=== PATIENT | female | born 1985 | race Caucasian/White ===

== ENCOUNTER 2016-07-05 17:05 | Emergency (ER) | payer OTHER ==
[2016-07-05 17:37] VITALS: BP 107/70; PULSE 88; TEMP 98.2; BMI 34.3
[2016-07-05 18:58] LABS: URINE APPEARANCE SLCLOUDY; URINE BILIRUBIN NEGATIVE (NEGATIVE); URINE BLOOD NEGATIVE (NEGATIVE); URINE COLOR LTYELLOW; URINE GLUCOSE (UA) NEGATIVE (NEGATIVE); URINE KETONE TRACE (NEGATIVE); URINE LEUK ESTERASE TRACE (NEGATIVE); URINE NITRITE NEGATIVE (NEGATIVE); URINE PROTEIN NEGATIVE (NEGATIVE); URINE UROBILINOGEN NEGATIVE E.U./dl (0.2-1.0)
[2016-07-05 19:10] LABS: URINE BACTERIA RARE /hpf (NONE SEEN); URINE HYALINE CAST 1 /lpf; URINE MUCUS RARE; URINE RBC 3 /hpf (0-3); URINE WBC 5 /hpf (3-5)
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
[2016-07-05] MEDS ORDERED: IBUPROFEN 400 MG TABLET (FP) PO ONE (19:21)
[2016-07-05] MEDS: IBUPROFEN 400 MG TABLET (FP) PO ONE (19:23)
== END 2016-07-05 19:36 | disposition home or self-care (01) ==
LOC: JER 17:05 → JERFT 17:05
DX: S16.1XXA Strain of muscle, fascia and tendon at neck level, initial encounter (principal); V43.62XA Car passenger injured in collision with other type car in traffic accident, initial encounter; Y93.89 Activity, other specified; Y92.410 Unspecified street and highway as the place of occurrence of the external cause
CPT/HCPCS: 72050-TC; 81003; 81015; 84703; 99281-25

== ENCOUNTER 2017-02-24 20:54 | Emergency (ER) | payer SELFPAY ==
[2017-02-24 21:14] VITALS: BP 155/95; PULSE 83; TEMP 98.3; BMI 36.8
--- NOTE | 2017-02-24 21:38 | PDOC ---
History of Present Illness - General Chief Complaint: Vaginal Bleeding Stated Complaint: 7 WEEKS , BLEEDING Time Seen by Provider: 02/24/17 21:11 History Source: Patient Exam Limitations: No Limitations - History of Present Illness Travel History: No Initial Comments: 02/24/17 21:36 31-year-old female with no medical history, presents to the emergency department complaining of vaginal bleed. Patient states after she voided, she noticed some pinkish stain to her tissue from wiping. Patient denies fever, chills, nausea/vomiting, chest pain, shortness of breath, abdominal pains, flank pains, urinary symptoms: Frequency/urgency/hesitancy, hematuria. LMP 01/01/2017 Past History - Past Medical History Allergies/Adverse Reactions: Allergies Allergy/AdvReac Type Severity Reaction Status Date / Time latex Allergy Intermediate Itching Verified 02/24/17 21:29 Home Medications: Ambulatory Orders Cetirizine HCl [Zyrtec -] 10 mg PO DAILY 02/17/15 Anemia: No Asthma: No Cancer: No Cardiac Disorders: No CVA: No COPD: No CHF: No Dementia: No Diabetes: No GI Disorders: No Disorders: No HTN: No Hypercholesterolemia: No Liver Disease: No Seizures: No Thyroid Disease: No - Surgical History GI Surgery: Yes (GASTRIC SLEEVE) - Reproductive History Is Patient Now?: Yes Therapeutic (s) & number: No - Immunization History Immunization Up to Date: Yes - Suicide/Smoking/Psychosocial Hx Smoking History: Never smoked Information on smoking cessation initiated: No Hx Alcohol Use: No Drug/Substance Use Hx: No Substance Use Type: None Review of Systems - Review of Systems Able to Perform ROS?: Yes Comments:: 02/24/17 21:35 CONSTITUTIONAL: Absent: fever, chills, diaphoresis, generalized weakness, malaise, loss of appetite HEENT: Absent: rhinorrhea, nasal congestion, throat pain, throat swelling, difficulty swallowing, mouth swelling, ear pain, eye pain, visual Changes CARDIOVASCULAR: Absent: chest pain, loss of consciousness, palpitations, irregular heart rate, peripheral edema RESPIRATORY: Absent: cough, shortness of breath, dyspnea with exertion, orthopnea, wheezing, stridor, hemoptysis GASTROINTESTINAL: Absent: abdominal pain, abdominal distension, nausea, vomiting, diarrhea, constipation, melena, hematochezia GENITOURINARY: +vag bleed/stain Absent: dysuria, frequency, urgency, hesitancy, hematuria, flank pain, genital pain MUSCULOSKELETAL: Absent: myalgia, arthralgia, joint swelling SKIN: Absent: rash, itching, pallor Is the patient limited Setswana proficient: No *Physical Exam - Vital Signs Last Vital Signs Temp Pulse Resp BP Pulse Ox 98.3 F 83 20 155/95 02/24/17 21:11 02/24/17 21:11 02/24/17 21:11 02/24/17 21:11 - Physical Exam Comments: 02/24/17 21:36 GENERAL: Well developed, well nourished. Awake and alert. No acute distress. HEENT: Normocephalic, atraumatic. PERRLA, EOMI. No conjunctival pallor. Sclera are non- icteric. Moist mucous membranes. Oropharynx is clear. NECK: Supple. Full ROM. No JVD. Carotid pulses 2+ and symmetric, without bruits. No thyromegaly. No lymphadenopathy. CARDIOVASCULAR: Regular rate and rhythm. No murmurs, rubs, or gallops. Distal pulses are 2+ and symmetric. PULMONARY: No evidence of respiratory distress. Lungs clear to auscultation bilaterally. No wheezing, rales or rhonchi. ABDOMINAL: Soft. Non-tender. Non-distended. No rebound or guarding. No organomegaly. Normoactive bowel sounds. MUSCULOSKELETAL Normal range of motion at all joints. No bony deformities or tenderness. No CVA tenderness. EXTREMITIES: No cyanosis. No clubbing. No edema. No calf tenderness. SKIN: Warm and dry. Normal capillary refill. No rashes. No jaundice. Pelvic: External genitalia normal without lesions. Vaginal vault is clear without blood or discharge. Cervix is long and closed. ED Treatment Course - LABORATORY CBC & Chemistry Diagram: 02/24/17 21:22 02/24/17 21:22 - RADIOLOGY Radiology Studies Ordered: Category Date Time Status TRANSVAGINAL US PREG [US] Stat Ultrasound 02/24/17 21:29 Ordered Radiograph Interpretation: 02/24/17 21:37 Transvaginal US": Early single intrauterine gestation with a crown-rump length that corresponds with an estimated gestation age of 6 weeks and 1 day. No cardiac activity was appreciated. cardiac activity is normally seen at this gestational age. Therefore this is concerning for demise. Recommend clinical correlation, serial beta hCG. *DC/Admit/Observation/Transfer Diagnosis at time of Disposition: demise - Discharge Dispostion Condition at time of disposition: Stable Admit: No - Referrals Referrals: Catrachita Sahu MD [Staff Physician] - - Patient Instructions Additional Instructions: The preliminary report for your transvaginal ultrasound performed in the hospital this evening shows: Early single intrauterine gestation with a crown-rump length that corresponds with an estimated gestational age of 6 weeks and 1 day. There is no cardiac activity. cardiac activity is normally seen at this gestational age. This is concerning for demise. You must return back to the emergency department or be seen by the armature connector for a serial beta hCG in 2 days, a follow-up and a repeat ultrasound. Return back to the emergency department for severe/persistent or worsening symptoms. Todays Betad HCG 63355.5 - Post Discharge Activity
[2017-02-24 21:41] LABS: BASO % 0.2 % (0-2.0); EOS # 0.2 # (0-4.5); EOS % 1.5 % (0-4.5); LYMPH # 4.1 (8-40); MCH 27.2 pg (25.7-33.7); MCHC 32.8 g/dl (32.0-36.0); MEAN CELL VOLUME 83.1 fl (80-96); MONO # 0.7 # (3.8-10.2); NEUT # 7.8 # (42.8-82.8); NEUT % 60.8 % (42.8-82.8); PLATELET COUNT 318 K/MM3 (134-434); RDW 14.2 % (11.6-15.6); WHITE BLOOD COUNT 12.9 K/mm3 (4.0-10.0)
[2017-02-24 21:56] LABS: URINE APPEARANCE CLEAR; URINE BILIRUBIN NEGATIVE (NEGATIVE); URINE BLOOD 2+ (NEGATIVE); URINE COLOR LTYELLOW; URINE GLUCOSE (UA) NEGATIVE (NEGATIVE); URINE KETONE NEGATIVE (NEGATIVE); URINE LEUK ESTERASE NEGATIVE (NEGATIVE); URINE NITRITE NEGATIVE (NEGATIVE); URINE PROTEIN NEGATIVE (NEGATIVE); URINE UROBILINOGEN 4.0 E.U/dl mg/dL (0.2-1.0)
[2017-02-24 22:06] LABS: ALBUMIN 3.7 g/dl (3.4-5.0); ANION GAP 7 (8-16); BILIRUBIN,TOTAL 0.2 mg/dL (0.2-1.0); CALCIUM 8.7 mg/dL (8.5-10.1); CO2 26 mmol/L (21-32); CREATININE 0.8 mg/dL (0.55-1.02); GLUCOSE,RANDOM 85 mg/dL (74-106); SGOT/AST 9 U/L (15-37); SGPT/ALT 16 U/L (12-78); TOT PROT 7.2 g/dl (6.4-8.2)
[2017-02-24 22:07] LABS: ALK PHOS 96 U/L (45-117)
[2017-02-24 22:28] LABS: URINE RBC 2 /hpf (0-3); URINE WBC <1 /hpf (3-5)
[2017-02-25 14:02] LABS: URINE LEUK ESTERASE Negative (NEGATIVE)
== END 2017-02-25 00:58 | disposition home or self-care (01) ==
LOC: JER 20:54
DX: O02.1 Missed abortion (principal); Z3A.01 Less than 8 weeks gestation of pregnancy
CPT/HCPCS: 36415; 76817-TC; 80053; 81003; 81015; 84702; 85025; 86850; 86900; 86901; 99282-25

== ENCOUNTER 2017-02-26 18:56 | Emergency (ER) | payer OTHER ==
[2017-02-26 19:00] VITALS: BP 117/74; PULSE 114; TEMP 97.6; BMI 36.8
--- NOTE | 2017-02-26 19:39 | PDOC ---
History of Present Illness - General [place] [facility] [place]: [place] Time Seen by Provider: 02/26/17 19:20 - History of Present Illness Initial Comments: 02/26/17 19:33 CHIEF COMPLAINT: repeat beta, TVUS s/p vag bleeding HISTORY OF PRESENT ILLNESS: 31-year-old female with no medical history, returns to the emergency department for vag bleeding. Patient was seen in this ED and had an ultrasound with no appreciabe FHT and was advised to return for repeat beta and TVUS. Patient denies fever, chills, nausea/vomiting, chest pain , shortness of breath, abdominal pains, flank pains, urinary frequency/urgency/ hesitancy, hematuria. PAST MEDICAL HISTORY: Denies past medical history FAMILY HISTORY: Denies SOCIAL HISTORY: Denies tobacco, alcohol, illicit drug use. SURGICAL HISTORY: Denies ALLERGIES: No known drug allergies REVIEW OF SYSTEMS General/Constitutional: Denies fever or chills. Denies weakness, weight change. HEENT: Denies change in vision. Denies ear pain or discharge. Denies sore throat. Cardiovascular: Denies chest pain or shortness of breath. Respiratory: Denies cough, wheezing, or hemoptysis. Gastrointestinal: Denies nausea, vomiting, diarrhea or constipation. Denies rectal bleeding. Genitourinary: Denies dysuria, frequency, or change in urination. Musculoskeletal: Denies joint or muscle swelling or pain. Denies neck or back pain. Skin and breasts: Denies rash or easy bruising. Neurologic: Denies headache, vertigo, loss of consciousness, or loss of sensation. PHYSICAL EXAM General Appearance: Well-appearing, appropriately dressed. No apparent distress. HEENT: EOMI, PERRLA. No photophobia, scleral icterus. Respiratory/Chest: Lungs CTAB. Cardiovascular: RRR. S1, S2. Gastrointestinal/Abdominal: Normal bowel sounds. Abdomen soft, non-distended. No tenderness or rebound tenderness. No organomegaly, pulsatile mass, guarding , hernia, hepatomegaly, splenomegaly. Musculoskeletal/Extremities: Normal inspection. FROM of all extremities, normal capillary refill. Pelvis Stable. No CVA tenderness. No tenderness to extremities, pedal edema, swelling, erythema or deformity. Integumentary: Appropriate color, dry, warm. No cyanosis, erythema, jaundice or rash Neurologic: sampler first II-XII intact. Fully oriented, alert. Appropriate mood/affect. Motor strength 5/5. No appreciable EOM palsy, facial droop or sensory deficit. Past History - Past Medical History Allergies/Adverse Reactions: Allergies Allergy/AdvReac Type Severity Reaction Status Date / Time latex Allergy Intermediate Itching Verified 02/26/17 18:58 Home Medications: Ambulatory Orders Metformin HCl 500 mg PO ASDIR 02/26/17 Anemia: No Asthma: No Cancer: No Cardiac Disorders: No CVA: No COPD: No CHF: No Dementia: No Diabetes: No GI Disorders: No Disorders: No HTN: No Hypercholesterolemia: No Liver Disease: No Seizures: No Thyroid Disease: No - Surgical History GI Surgery: Yes (GASTRIC SLEEVE) - Reproductive History Therapeutic (s) & number: No - Immunization History Immunization Up to Date: Yes - Suicide/Smoking/Psychosocial Hx Smoking History: Never smoked Hx Alcohol Use: No Drug/Substance Use Hx: No Substance Use Type: None *Physical Exam - Vital Signs Last Vital Signs Temp Pulse Resp BP Pulse Ox 97.6 F 114 H 18 117/74 100 02/26/17 18:58 02/26/17 18:58 02/26/17 18:58 02/26/17 18:58 02/26/17 18:58 ED Treatment Course - RADIOLOGY Radiology Studies Ordered: Category Date Time Status TRANSVAGINAL US PREG [US] Stat Ultrasound 02/26/17 19:30 Ordered Medical Decision Making - Medical Decision Making 02/26/17 19:39 31-year-old female with no medical history, returns to the emergency department for vag bleeding. -beta hcg -TVUS VS notable for HR 114 on arrival to ED, however during interview patient reports "oh, that's because i walked all the to the hospital from my house, [place] so i just walked here." beta hcg - 00941, only increase of 3k since beta of 02/2402/26/17 22:41 Ultrasound results: IMPRESSION: Given that estimated gestational age based on LMP 01/01/2017 = 8 weeks, zero days which do not correlate with estimated gestational age of 6 weeks, based on present CRL measurement. There is no heart rate. Mildly irregular in interval smaller gestational sac now demonstrated . These findings are most suggestive of demise. *DC/Admit/Observation/Transfer Diagnosis at time of Disposition: Miscarriage - Discharge Dispostion Disposition: HOME Condition at time of disposition: Stable Admit: No - Referrals Referrals: Murphy El MD [Primary Care Provider] - Bucky Mitchell MD [Staff Physician] - - Patient Instructions Printed Discharge Instructions: DI for Miscarriage Additional Instructions: Please follow up with your OBGYN by the by the end of the week for further evaluation and monitoring of your miscarriage. You will experience vaginal bleeding, do not be alarmed if begin to pass clots. If you develop lightheadedness, dizziness, palpitations, shortness of breath, or any new or worsening symptoms, please return to the ER. - Post Discharge Activity
== END 2017-02-26 22:46 | disposition home or self-care (01) ==
LOC: JER 18:56 → JERFT 18:56
DX: O03.9 Complete or unspecified spontaneous abortion without complication (principal)
CPT/HCPCS: 36415; 76817-TC; 84702; 99281-25

== ENCOUNTER 2017-11-21 11:26 | Emergency (ER) | payer OTHER ==
[2017-11-21 11:43] VITALS: BMI 38.2
[2017-11-21] MEDS ORDERED: SODIUM CHLORIDE 0.9% 500 ML INFUS.BAG IV ONE (12:04)
--- NOTE | 2017-11-21 12:04 | PDOC ---
History of Present Illness - History of Present Illness Initial Comments: 11/21/17 13:55 The patient is a 32 year old female who is 31 weeks [id number], with no significant past medical history, who presents to the emergency department today complaining of 1 episode of lightheadedness, dizziness, and vomiting that occured this morning. The patient states that she started to feel dizzy and lightheaded while sitting at her desk this morning at work. Denies LOC. She reports 1 episode of nonbloody, nonbilious vomiting around 10:15am. She notes that she experienced a similar event while having an ultrasound done in a very hot room. The patient notes that she has been eating and staying hydrated today. She states that she is feeling slightly better after resting and drinking some water. Denies vaginal bleeding, unusual discharge. Denies fever, chills. Denies any urinary symptoms Allergies: latex, seasonal allergies Surgical Hx: Gastric sleeve (approximately 5 years ago) OBGYN: Dr. No Stark <Casie Dillon - Last Filed: 11/21/17 14:19> - General History Source: Patient Exam Limitations: No Limitations <Sherry Schwartz - Last Filed: 11/21/17 15:30> - General Chief Complaint: Lightheaded Stated Complaint: LIGHTHEADED/31 WKS Time Seen by Provider: 11/21/17 12:03 Past History <Casie Dillon - Last Filed: 11/21/17 14:19> - Past Medical History Anemia: No Asthma: No Cancer: No Cardiac Disorders: No CVA: No COPD: No CHF: No Dementia: No Diabetes: No GI Disorders: No Disorders: No HTN: No Hypercholesterolemia: No Liver Disease: No Seizures: No Thyroid Disease: No - Surgical History GI Surgery: Yes (GASTRIC SLEEVE) - Reproductive History Therapeutic (s) & number: No - Immunization History Immunization Up to Date: Yes - Suicide/Smoking/Psychosocial Hx Smoking History: Never smoked Hx Alcohol Use: No Drug/Substance Use Hx: No Substance Use Type: None <Sherry Schwartz - Last Filed: 11/21/17 15:30> - Past Medical History Allergies/Adverse Reactions: Allergies Allergy/AdvReac Type Severity Reaction Status Date / Time latex Allergy Intermediate Itching Verified 11/21/17 11:43 Home Medications: Ambulatory Orders metFORMIN HCL [Metformin HCl] 500 mg PO ASDIR 02/26/17 Review of Systems - Review of Systems Able to Perform ROS?: Yes Comments:: 11/21/17 13:55 GENERAL/CONSTITUTIONAL: +lightheaded, +dizzy. No fever or chills. No weakness. no sweats. HEAD, EYES, EARS, NOSE AND THROAT: No change in vision or hearing. No ear pain or discharge. CARDIOVASCULAR: No chest pain or palpitations, syncope or edema. RESPIRATORY: No SOB, cough, wheezing, or hemoptysis. GASTROINTESTINAL +nonbloody, nonbilious vomiting. +nausea. No diarrhea or constipation. No bloody stools. GENITOURINARY: No hematuria, dysuria, frequency, urgency or other changes. MUSCULOSKELETAL: No joint or muscle swelling or pain. No neck or back pain. SKIN: No rash or changes in skin color or lesions. NEUROLOGIC: No headache, vertigo, loss of consciousness, or change in strength/ sensation. No gait instability. HEMATOLOGIC/LYMPHATIC: No anemia, easy bruising/bleeding, or history of blood clots. ALLERGIC/IMMUNOLOGIC: No allergies All other systems reviewed and negative, or as documented in HPI. <Casie Dillon - Last Filed: 11/21/17 14:19> *Physical Exam - Vital Signs Last Vital Signs Temp Pulse Resp BP Pulse Ox 98.8 F 98 H 18 111/70 99 11/21/17 11:41 11/21/17 11:41 11/21/17 11:41 11/21/17 11:41 11/21/17 11:41 - Physical Exam Comments: 11/21/17 13:55 General: Well appearing, awake and alert, NAD. HEENT: NCAT, PERRL, EOMI, clear conjunctiva, anicteric, moist mucus membranes, clear oropharynx, no oral lesions.. Neck: neck supple, FROM Resp: CTAB, normal and even respirations, no respiratory distress CVS: RRR, no murmurs, 2+ peripheral pulses throughout, no peripheral edema Abdomen: +gravid uterus, nontender. no peritoneal signs. Back: nontender, normal inspection and ROM MSK: no edema, CARUSO x4, ROM intact. No clubbing or cyanosis. normal bulk and tone. Neuro: alert, oriented appropriately; no focal neurologic deficits. SILT, 5/5 distal and prox strength in all extrem. speech clear. Skin: warm and well perfused, cap refill <2 sec, normal color <Casie Dillon - Last Filed: 11/21/17 14:19> - Vital Signs Last Vital Signs Temp Pulse Resp BP Pulse Ox 98.8 F 98 H 18 111/70 99 11/21/17 11:41 11/21/17 11:41 11/21/17 11:41 11/21/17 11:41 11/21/17 11:41 <Sherry Schwartz - Last Filed: 11/21/17 15:30> Heart Score/ECG Review - ECG Impressions Comment:: 11/21/17 15:29 EKG normal sinus rhythm, no interval abnormalities, narrow QRS, ST and T wave segments and morphology normal. Nonspecific T wave abnormalities in III, AVF, no prior EKGs for comparison. <Sherry Schwartz - Last Filed: 11/21/17 15:30> ED Treatment Course - LABORATORY CBC & Chemistry Diagram: 11/21/17 12:50 11/21/17 12:50 - ADDITIONAL ORDERS Additional order review: Laboratory Results 11/21/17 11/21/17 13:05 12:50 Sodium 138 Potassium 4.4 Chloride 106 Carbon Dioxide 26 Anion Gap 6 L BUN 4 L Creatinine 0.5 L Creat Clearance w eGFR > 60 Random Glucose 68 L Calcium 8.5 Total Bilirubin 0.3 AST 22 ALT 23 Alkaline Phosphatase 130 H Total Protein 6.7 Albumin 2.7 L Urine Color Ltyellow Urine Appearance Clear Urine pH 7.0 Ur Specific Friendship 1.009 Urine Protein Negative Urine Glucose (UA) Negative Urine Ketones Negative Urine Blood Negative Urine Nitrite Negative Urine Bilirubin Negative Urine Urobilinogen Negative Ur Leukocyte Esterase Negative 11/21/17 12:50 RBC 3.94 MCV 76.9 L MCHC 31.7 L RDW 14.5 MPV 8.5 Neutrophils % 74.7 D Lymphocytes % 17.9 D Monocytes % 6.2 Eosinophils % 1.0 Basophils % 0.2 - Medications Given in the ED: ED Medications Discontinued Medications Generic Name Dose Route Start Last Admin Trade Name Freq PRN Reason Stop Dose Admin Sodium Chloride 1,000 ml 11/21/17 12:04 11/21/17 13:01 Normal Saline - IV 11/21/17 12:05 1,000 ml ONCE ONE Administration <Casie Dillon - Last Filed: 11/21/17 14:19> - LABORATORY CBC & Chemistry Diagram: 11/21/17 12:50 11/21/17 12:50 <Sherry Schwartz - Last Filed: 11/21/17 15:30> Medical Decision Making - Medical Decision Making 11/21/17 15:29 MDM: Mainor 32 YOF at approx 33 weeks gestation presenting with dizziness and headache this morning. Had similar episode previously where she felt faint while in hot room while getting ultrasound. Ate breakfast, since resolved. No AP , vomiting, diarrhea, fever or chills or urinary symptoms. Vitals reviewed, wnl. No fever Labs and lytes, LFTs and Cr wnl. Mild leukocytosis and known h/o anemia, but no bleeding. Glucose borderline at 68, able to tolerate PO with juice and crackers. Well hydrated, able to take PO. UA neg for infection or ketones. No leg swelling or pain, so clinically doubt pe or DVT. EKG normal sinus rhythm, no interval abnormalities, narrow QRS, ST and T wave segments and morphology normal. Nonspecific T wave abnormalities in III, AVF, no prior EKGs for comparison. Otherwise no Cp or sob. Dispo: discharge to L&D for monitoring and BPP. stable for discharge. Pt informed of my clinical impression, treatment recommendations and disposition plan. All questions answered to patient's satisfaction and expressed understanding and comfort with this. Reasons for returning to the ED sooner discussed with the patient otherwise, follow up with primary care physician. At the time of discharge, the patient is alert, clinically improved, tolerating po and verbalizes understanding of instructions. <Sherry Schwartz - Last Filed: 11/21/17 15:30> *DC/Admit/Observation/Transfer - Attestations Scribe Attestion: 11/21/17 13:55 Documentation prepared by CRAIG Verma, acting as emergency medical services coordinator for Sherry Schwartz MD. <Casie Dillon - Last Filed: 11/21/17 14:19> - Discharge Dispostion Decision to Admit order: No Decision to Admit order Date/Time: 11/21/17 15:30 discharge to L&D - Attestations Physician Attestion: 11/21/17 15:30 I, Sherry Schwartz MD, attest that this document has been prepared under my direction and personally reviewed by me in its entirety. I further attest, that it accurately reflects all work, treatment, procedures and medical decision -making performed by me. <Sherry Schwartz - Last Filed: 11/21/17 15:30> Diagnosis at time of Disposition: Dizziness, - Discharge Dispostion Disposition: TRANSFER ACUTE CARE/OTHER HOSP Condition at time of disposition: Improved - Referrals Referrals: Murphy El MD [Primary Care Provider] - - Patient Instructions Printed Discharge Instructions: Diet, DI for Abdominal Pain -- Early , DI for Dizziness-Nonvertigo Additional Instructions: Your laboratory / imaging results were normal, sugar was borderline low urine negative for dehydration or infection you feel better with fluids, continue to stay hydrated. Follow up with your physician and consultants as instructed, take your medications as instructed including your prenatals. Return if worsening symptoms including fevers, headache, vomiting, visual or hearing disturbances, abdominal pain, chest pain, shortness of breath, syncope, dehydration, inability to take things by mouth/vomiting, altered mental status, or worsening concerning symptoms. your medications on discharge include_ side effects may include upset stomach, abdominal pain, vomiting, or diarrhea. do not drink alcohol with your medications. you will be transferred to the labor and delivery unit for monitoring.
[2017-11-21 13:05] LABS: BASO % 0.2 % (0-2.0); HEMATOCRIT 30.3 % (32.4-45.2); HEMOGLOBIN 9.6 GM/dL (10.7-15.3); LYMPH % 17.9 % (8-40); MCH 24.4 pg (25.7-33.7); MCHC 31.7 g/dl (32.0-36.0); MEAN CELL VOLUME 76.9 fl (80-96); MEAN PLT VOLUME 8.5 fl (7.5-11.1); MONO % 6.2 % (3.8-10.2); NEUT % 74.7 % (42.8-82.8); PLATELET COUNT 346 K/MM3 (134-434); RBC 3.94 M/mm3 (3.60-5.2); RDW 14.5 % (11.6-15.6); WHITE BLOOD COUNT 11.3 K/mm3 (4.0-10.0)
[2017-11-21 13:13] LABS: URINE APPEARANCE CLEAR; URINE BILIRUBIN NEGATIVE (<2.0 mg/dL); URINE COLOR LTYELLOW; URINE GLUCOSE (UA) NEGATIVE (NEGATIVE); URINE KETONE NEGATIVE (NEGATIVE); URINE LEUK ESTERASE NEGATIVE (NEGATIVE); URINE NITRITE NEGATIVE (NEGATIVE); URINE PROTEIN NEGATIVE (NEGATIVE); URINE UROBILINOGEN NEGATIVE mg/dL (0.2-1.0)
[2017-11-21 13:35] LABS: ALBUMIN 2.7 g/dl (3.4-5.0); ANION GAP 6 MMOL/L (8-16); BILIRUBIN,TOTAL 0.3 mg/dL (0.2-1); BLOOD UREA NITROGEN 4 mg/dL (7-18); CALCIUM 8.5 mg/dL (8.5-10.1); CHLORIDE 106 mmol/L (98-107); CO2 26 mmol/L (21-32); CREATININE 0.5 mg/dL (0.55-1.3); GLUCOSE,RANDOM 68 mg/dL (74-106); POTASSIUM 4.4 mmol/L (3.5-5.1); SGOT/AST 22 U/L (15-37); SGPT/ALT 23 U/L (13-61); SODIUM 138 mmol/L (136-145); TOT PROT 6.7 g/dl (6.4-8.2)
[2017-11-21 13:36] LABS: ALK PHOS 130 U/L (45-117)
--- NOTE | 2017-11-21 15:25 | EKG ---
Test Reason : Blood Pressure : / mmHG Vent. Rate : 081 BPM Atrial Rate : 081 BPM P-R Int : 138 ms QRS Dur : 090 ms QT Int : 360 ms P-R-T Axes : 019 009 008 degrees QTc Int : 418 ms NORMAL SINUS RHYTHM NORMAL ECG NO PREVIOUS ECGS AVAILABLE Confirmed by JAMILA VINCENT, SERGO ([id number]) on 11/21/2017 3:25:10 PM Referred By: Confirmed By:SERGO MARINO MD
[2017-11-21 16:18] VITALS: BP 103/64; PULSE 94; TEMP 98.8
== END 2017-11-21 17:00 | disposition home or self-care (01) ==
LOC: JER 11:26
PROC: 3E0337Z Introduction of Electrolytic and Water Balance Substance into Peripheral Vein, Percutaneous Approach (ICD-10-PCS; principal; 2017-11-21)
DX: O26.893 Other specified pregnancy related conditions, third trimester (principal); Z3A.31 31 weeks gestation of pregnancy; R42 Dizziness and giddiness
CPT/HCPCS: 36415; 80053; 81003; 83690; 85025; 87086; 93005; 93010; 99281-25

== ENCOUNTER 2018-01-25 08:55 | Inpatient (IN) | payer OTHER ==
[2018-01-25] MEDS ORDERED: ELECTROLYTE-148 SOLN 1,000 ML IV ONE (10:55)
--- NOTE | 2018-01-25 11:23 | HP ---
Past Medical History - Primary Care Physician PCP:: Blanquita Stark - Admission Chief Complaint: Elective Section History of Present Illness: 32 yo EDC 01/18/18 EGA 41 weeks admitted to for postdates and will do elective Section Pt withanemia and + GBS History Source: Patient Limitations to Obtaining History: No Limitations - Past Medical History ...: 3 ...Para: 0 ...Term: 0 ...: 0 ...Spon : 0 ...Induced : 0 ...LMP: 04/13/17 ... Weeks Gestation by Dates: 41.0 ...EDC by Dates: 01/18/18 ...EDC by Sono: 01/20/18 - Past Surgical History Past Surgical History: Yes: None Hx Myomectomy: No Hx Transabdominal Cerclage: No - Smoking History Smoking history: Never smoked Have you smoked in the past 12 months: No - Alcohol/Substance Use Hx Alcohol Use: No History of Substance Use: reports: None - Social History History of Recent Travel: No Home Medications - Allergies Allergies/Adverse Reactions: Allergies Allergy/AdvReac Type Severity Reaction Status Date / Time latex Allergy Intermediate Itching Verified 11/21/17 11:43 - Home Medications Home Medications: Ambulatory Orders Vitamins 1 tab PO DAILY 11/21/17 Review of Systems - Review of Systems Constitutional: reports: No Symptoms Eyes: reports: No Symptoms HENT: reports: No Symptoms Neck: reports: No Symptoms Cardiovascular: reports: No Symptoms Respiratory: reports: No Symptoms Gastrointestinal: reports: No Symptoms Genitourinary: reports: No Symptoms Breasts: reports: No Symptoms Reported Musculoskeletal: reports: No Symptoms Integumentary: reports: No Symptoms Neurological: reports: No Symptoms Endocrine: reports: No Symptoms Hematology/Lymphatic: reports: No Symptoms Psychiatric: reports: No Symptoms Physical Exam - Maternity Vital Signs: Vital Signs Temperature 98.2 F 01/25/18 09:00 Pulse Rate 93 H 01/25/18 09:00 Respiratory Rate 18 01/25/18 09:00 Blood Pressure 121/75 01/25/18 09:00 O2 Sat by Pulse Oximetry (%) Constitutional: Yes: Well Nourished, No Distress Neck: Yes: WNL Cardiovascular: Yes: WNL, Regular Rate and Rhythm Lungs: Clear to auscultation Breast(s): Yes: WNL - Abdominal Exam/OB Fundal Height: 41 Number of Fetuses: Single Presentation: Vertex Contractions: No Category: I Accelerations: Non-Uniform Decelerations: None - Vaginal Exam/OB Dilatation (cm): 1 cm Effacement (%): 50 Amniotic Membrane Status: Intact Presentation: Vertex/Position Station: -1 - Physical Exam Musculoskeletal: Yes: WNL Extremities: Yes: WNL Edema: No Hemorrhage Risk Assessment - Risk Factors Risk Score: 1 Risk Level: Medium Risk Problem List - Problems (1) Delivery by elective section Code(s): O82 - ENCOUNTER FOR DELIVERY WITHOUT INDICATION (2) Post term Code(s): O48.0 - POST-TERM Qualifiers: Assessment/Plan Elective Section 41 weeks Unfavorable cervix Cat1 AF! 6 Plan Low Transverse Section
[2018-01-25] MEDS ORDERED: METHYLERGONOVINE MALEATE 0.2 MG/1 ML AMP IM PRN (11:28)
[2018-01-25] MEDS ORDERED: ELECTROLYTE-148 SOLN 1,000 ML IV SCH (11:30)
[2018-01-25] MEDS ORDERED: OXYTOCIN 20 UNITS in 0.9% NS 20 UNIT/1,000 ML INFUS.BAG IV SCH (11:30)
--- NOTE | 2018-01-25 11:31 | OP ---
Operative Note - Note: Operative Date: 01/25/18 Pre-Operative Diagnosis: Postdates. ELective Section. 41 weeks Operation: Low transverse Ceasrean Section Findings: Live male infant Post-Operative Diagnosis: Same as Pre-op Surgeon: Blanquita Stark Chemical Dependency Nurse: Rony Taylor Anesthesia: Spinal Estimated Blood Loss (mls): 700 Operative Report Dictated: Yes
[2018-01-25 12:16] VITALS: BMI 38.2
[2018-01-25] MEDS ORDERED: ONDANSETRON 4 MG/2 ML VIAL IVPUSH PRN (12:20)
[2018-01-25] MEDS ORDERED: OXYTOCIN 20 UNITS in 0.9% NS 40 UNIT/2,000 ML INFUS.BAG IV ONE (12:49)
[2018-01-25] MEDS ORDERED: TUBERCULIN PPD 5 TU/0.1ML SYRINGE (IN PATIENT USE ONLY) ID ONE (13:00)
[2018-01-25] MEDS ORDERED: CITRIC ACID/SODIUM CITRATE 30 ML UNIT-DOSE CUP PO ONE (13:00)
[2018-01-25] MEDS ORDERED: morphine SULFATE/Preservative Free 0.5 MG/ML (1cc Syringe) ONE (13:36)
[2018-01-25] MEDS ORDERED: KETOROLAC TROMETHAMINE 30 MG/1 ML VIAL ONE (13:37)
[2018-01-25] MEDS ORDERED: ceFAZolin SODIUM 1 GM VIAL ONE (13:54)
[2018-01-25] MEDS ORDERED: ePHEDrine SULFATE 50 MG/1 ML AMPULE ONE (13:55)
[2018-01-25] MEDS ORDERED: PHENYLEPHRINE HCL 10 MG/1 ML SINGLE DOSE VIAL ONE (14:09)
[2018-01-25 15:09] LABS: ARTERIAL BLD GAS O2 SATURATION 9.9 % (90-98.9); ARTERIAL BLOOD GAS BASE EXCESS -11.8 meq/l (-2-2); ARTERIAL BLOOD GAS PCO2 75.4 mmHg (35-45); ARTERIAL BLOOD GAS PO2 14.8 mmHg (80-100)
[2018-01-25 15:14] LABS: ARTERIAL BLOOD GAS pH 7.07 (7.35-7.45)
[2018-01-25 15:17] LABS: VENOUS PC02 59.3 mmHg (38-52); VENOUS PH 7.17 (7.32-7.42); VENOUS PO2 18.2 mmHg (28-48)
--- NOTE | 2018-01-25 16:29 | OP ---
DATE OF OPERATION: DATE OF DICTATION: 01/25/2018 PREOPERATIVE DIAGNOSES: Intrauterine , at 41 weeks. Failed induction. OPERATION: Primary low transverse section. POSTOPERATIVE DIAGNOSES: Live male . Nuchal cord x1. Occiput posterior position. SURGEON: Blanquita Stark MD MICROBIOLOGY COORDINATOR: SYL Park; MD unavailable. ANESTHESIA: Spinal. FINDINGS: Live male delivered in OP position with meconium and a nuchal cord x1. PROCEDURE: Patient was taken to the operating room and placed in supine position, prepped and draped in the usual sterile fashion. A timeout was performed in accordance with hospital regulation. Pfannenstiel skin incision was made with the scalpel. Cautery was then used to go through the layers of abdominal wall to the level of the fascia. The fascia was cut in the midline and cautery was then used to open the fascia in smiling fashion. Kochers were then used to bluntly and sharply dissect the rectus muscles off the fascia. Muscles split in the midline. Peritoneal cavity was then entered and carried up and down where bladder retractor was then placed. The scalpel was then used to make a low transverse uterine incision. The incision was carried upward using bandage scissors. A live male was delivered in OP position. [id number]-zd-horar suction performed. Shoulders were delivered without difficulty. Cord was clamped and cut. Cord blood obtained. Cord pH obtained. Cord blood sampling obtained. Tissue sampling obtained. Infant handed to chip mucker. Placenta was manually extracted from the uterus. Uterus exteriorized and cleaned with clean lap pads. Uterine incision then closed using 0-Biosyn suture, first layer in continuous and locking, second layer imbricating the first layer. Hemostasis was achieved using [id number] sutures. Uterus interiorized. Abdominal cavity cleaned with clean lap pads. Peritoneum closed using 0-Biosyn suture. Muscles approximated in the midline using 0-Biosyn suture. Fascia was then closed using 0-Vicryl suture in two parts. Subcutaneous was closed using 0 Biosyn interrupted sutures. The skin was then closed using 3-0 Vicryl in subcuticular fashion. Steri-Strips placed. Patient had tolerated the procedure well. ESTIMATED BLOOD LOSS: 600 mL. Abdominal sweep done. Pad count noted to be normal. Patient was taken to the recovery room in stable condition. BLANQUITA STARK M.D. [id number]
[2018-01-26 07:38] LABS: BASO % 0.1 % (0-2.0); EOS % 0.3 % (0-4.5); HEMATOCRIT 28.8 % (32.4-45.2); LYMPH % 12.7 % (8-40); MCH 23.7 pg (25.7-33.7); MCHC 31.3 g/dl (32.0-36.0); MEAN CELL VOLUME 75.5 fl (80-96); MEAN PLT VOLUME 8.6 fl (7.5-11.1); MONO % 4.9 % (3.8-10.2); PLATELET COUNT 258 K/MM3 (134-434); RBC 3.82 M/mm3 (3.60-5.2); RDW 18.9 % (11.6-15.6); WHITE BLOOD COUNT 11.4 K/mm3 (4.0-10.0)
--- NOTE | 2018-01-26 07:48 | PN ---
Post Progress Note - Subjective Subjective: 32 yo Para 1 status post primary , seen and evaluated. No complaints. Post Day: 1 Type of Delivery: Primary C/S Vital Signs: Vital Signs Temperature 98.4 F 01/26/18 06:00 Pulse Rate 88 01/26/18 06:00 Respiratory Rate 18 01/26/18 06:00 Blood Pressure 112/63 01/26/18 06:00 O2 Sat by Pulse Oximetry (%) 99 01/25/18 21:00 Breast Exam: Yes: Soft Uterus: Yes: Fundus Firm Incision: Yes: Dressing dry and intact Abdomen/GI: Yes: Abdomen soft Lochia: Yes: Rubra Lochia, amount: Small Extremities: Yes: Calves non-tender Assessment/Plan Status post primary Ambulation Analgesia as needed Continue routine post op care
[2018-01-26] MEDS: SIMETHICONE 80 MG TAB.CHEW (FP) PO PRN ×2 (10:35→21:54)
[2018-01-26] MEDS: IBUPROFEN 600 MG TABLET (FP) PO PRN ×2 (10:36→21:54)
[2018-01-26] MEDS: oxyCODONE HCL 5 MG TABLET PO PRN ×2 (10:36→21:54)
[2018-01-26] MEDS ORDERED: BISACODYL 10 MG SUPP.RECT RC PRN (11:28)
[2018-01-26] MEDS ORDERED: oxyCODONE HCL 5 MG TABLET PO PRN (11:28)
--- NOTE | 2018-01-26 11:44 | PROC ---
Procedure Note Procedure: Anesthesia post op note, POD#1 S/P Primary under spinalanesthesia. VSS. No apparent post anesthesia complications signed off.
[2018-01-26] MEDS ORDERED: DIPHTH,PERTUSS(ACELL),TET 0.5 ML DISP.SYRIN IM ONE (14:00)
[2018-01-27] MEDS: SIMETHICONE 80 MG TAB.CHEW (FP) PO PRN ×2 (12:05→22:25)
[2018-01-27] MEDS: IBUPROFEN 600 MG TABLET (FP) PO PRN ×2 (12:06→22:25)
[2018-01-27] MEDS: oxyCODONE HCL 5 MG TABLET PO PRN ×2 (12:07→22:25)
--- NOTE | 2018-01-27 14:13 | PN ---
Post Progress Note - Subjective Subjective: 32 yo Para 1 status post primary , seen and evaluated. She's out of bed to chair; c/o mild incision pain. Post Day: 2 Type of Delivery: Primary C/S Vital Signs: Vital Signs Temperature 98.5 F 01/27/18 09:47 Pulse Rate 79 01/27/18 09:47 Respiratory Rate 20 01/27/18 09:47 Blood Pressure 115/69 01/27/18 09:47 O2 Sat by Pulse Oximetry (%) 99 01/25/18 21:00 Breast Exam: Yes: Soft Uterus: Yes: Fundus Firm Incision: Yes: Other (Steri strips in place, no bleeding) Abdomen/GI: Yes: Abdomen soft, Tolerating PO Lochia: Yes: Rubra Lochia, amount: Small Extremities: Yes: Calves non-tender Activity: Ambulating - Labs Labs: CBC WBC 11.4 K/mm3 (4.0-10.0) H 01/26/18 07:00 RBC 3.82 M/mm3 (3.60-5.2) 01/26/18 07:00 Hgb 9.0 GM/dL (10.7-15.3) L 01/26/18 07:00 Hct 28.8 % (32.4-45.2) L 01/26/18 07:00 MCV 75.5 fl (80-96) L 01/26/18 07:00 MCH 23.7 pg (25.7-33.7) L 01/26/18 07:00 MCHC 31.3 g/dl (32.0-36.0) L 01/26/18 07:00 RDW 18.9 % (11.6-15.6) H 01/26/18 07:00 Plt Count 258 K/MM3 (134-434) D 01/26/18 07:00 MPV 8.6 fl (7.5-11.1) 01/26/18 07:00 Absolute Neuts (auto) 9.3 K/mm3 (1.5-8.0) H 01/26/18 07:00 Neutrophils % 82.0 % (42.8-82.8) D 01/26/18 07:00 Lymphocytes % 12.7 % (8-40) D 01/26/18 07:00 Monocytes % 4.9 % (3.8-10.2) 01/26/18 07:00 Eosinophils % 0.3 % (0-4.5) 01/26/18 07:00 Basophils % 0.1 % (0-2.0) 01/26/18 07:00 Nucleated RBC % 0 % (0-0) 01/26/18 07:00 Assessment/Plan Status post primary Ambulation Analgesia as needed Continue routine post op care
--- NOTE | 2018-01-28 07:11 | PN ---
Post Progress Note - Subjective Subjective: Patient seen and evaluated, doing well. Post Day: 3 Type of Delivery: Primary C/S Vital Signs: Vital Signs Temperature 98.6 F 01/27/18 20:48 Pulse Rate 95 H 01/27/18 20:48 Respiratory Rate 20 01/27/18 20:48 Blood Pressure 127/90 01/27/18 20:48 O2 Sat by Pulse Oximetry (%) 99 01/25/18 21:00 Breast Exam: Yes: Soft Uterus: Yes: Fundus Firm Incision: Yes: Other (Steri strips in place) Abdomen/GI: Yes: Abdomen soft, Tolerating PO Lochia: Yes: Rubra Lochia, amount: Small Extremities: Yes: Calves non-tender Activity: Ambulating - Labs Labs: CBC WBC 11.4 K/mm3 (4.0-10.0) H 01/26/18 07:00 RBC 3.82 M/mm3 (3.60-5.2) 01/26/18 07:00 Hgb 9.0 GM/dL (10.7-15.3) L 01/26/18 07:00 Hct 28.8 % (32.4-45.2) L 01/26/18 07:00 MCV 75.5 fl (80-96) L 01/26/18 07:00 MCH 23.7 pg (25.7-33.7) L 01/26/18 07:00 MCHC 31.3 g/dl (32.0-36.0) L 01/26/18 07:00 RDW 18.9 % (11.6-15.6) H 01/26/18 07:00 Plt Count 258 K/MM3 (134-434) D 01/26/18 07:00 MPV 8.6 fl (7.5-11.1) 01/26/18 07:00 Absolute Neuts (auto) 9.3 K/mm3 (1.5-8.0) H 01/26/18 07:00 Neutrophils % 82.0 % (42.8-82.8) D 01/26/18 07:00 Lymphocytes % 12.7 % (8-40) D 01/26/18 07:00 Monocytes % 4.9 % (3.8-10.2) 01/26/18 07:00 Eosinophils % 0.3 % (0-4.5) 01/26/18 07:00 Basophils % 0.1 % (0-2.0) 01/26/18 07:00 Nucleated RBC % 0 % (0-0) 01/26/18 07:00 Assessment/Plan Status post primary Ambulation Analgesia as needed Continue routine post op care
[2018-01-28 07:23] LABS: BASO % 0.3 % (0-2.0); EOS % 1.9 % (0-4.5); HEMATOCRIT 25.6 % (32.4-45.2); HEMOGLOBIN 8.7 GM/dL (10.7-15.3); LYMPH % 23.9 % (8-40); MCH 25.2 pg (25.7-33.7); MCHC 33.9 g/dl (32.0-36.0); MEAN CELL VOLUME 74.2 fl (80-96); MEAN PLT VOLUME 8.7 fl (7.5-11.1); MONO % 6.8 % (3.8-10.2); NEUT % 67.1 % (42.8-82.8); PLATELET COUNT 308 K/MM3 (134-434); RBC 3.44 M/mm3 (3.60-5.2); RDW 18.9 % (11.6-15.6)
[2018-01-28] MEDS: IBUPROFEN 600 MG TABLET (FP) PO PRN ×2 (15:27→23:21)
[2018-01-28] MEDS: ACETAMINOPHEN 325 MG TABLET (FP) PO PRN ×2 (15:28→23:19)
[2018-01-29] MEDS: ACETAMINOPHEN 325 MG TABLET (FP) PO PRN (09:21)
[2018-01-29] MEDS: IBUPROFEN 600 MG TABLET (FP) PO PRN (09:22)
[2018-01-29 11:00] VITALS: BP 130/78; PULSE 67; TEMP 98.3
--- NOTE | 2018-01-30 06:31 | DS ---
Physical Exam-CERTIFIED MEETING PROFESSIONAL Vital Signs: Vital Signs Temperature 98.3 F 01/29/18 08:00 Pulse Rate 67 01/29/18 08:00 Respiratory Rate 18 01/29/18 08:00 Blood Pressure 130/78 01/29/18 08:00 O2 Sat by Pulse Oximetry (%) 99 01/25/18 21:00 Constitutional: Yes: Well Nourished, No Distress Cardiovascular: Yes: WNL, Regular Rate and Rhythm Respiratory: Yes: WNL, Regular, CTA Bilaterally Gastrointestinal: Yes: WNL, Normal Bowel Sounds, Soft ....Post : Yes: Uterus firm, Uterus non-tender Musculoskeletal: Yes: WNL Extremities: Yes: WNL Edema: No Wound/Incision: Yes: Clean/Dry, Well Approximated Labs: CBC, BMP 01/28/18 06:00 Delivery - Delivery Section: Low Flap Transverse Type of Anesthesia: Spinal Episiotomy/Laceration: None EBL (cc): 500 Delivery, Single - Stages of Labor Date of Delivery: 01/25/18 Time of Delivery: 14:13 Time Placenta Delivered: 14:14 Placenta: Yes: Manual Removal - Condition of Infant Project Manager Industrial/Zoning Engineer Present: Yes Name: Ann Marie Mckeon Gender: Male Weight: 8 lb 1 oz Position: Left, OT Total Hours ROM (Hrs/Mins): 0/2 - 1 Minute Total Score: 9 5 Minutes Total Score: 9 - Feeding Plan Initial Plan: Exclusive throughout hospitalization Discharge Summary Reason For Visit: Procedures: Principal: Low transverse Section Hospital Course: Unremarkable Condition: Good - Instructions Diet, Activity, Other Instructions: Physical activity Resume your normal everyday activity as tolerated no heavy lifting or exercise until seen by your surgeon. You may walk unlimited alvaro of and climb stairs. You may resume driving the car when you feel safe and comfortable behind the wheel. No sexual activity as instructed. Wound care If you have a bandage, leave it on, and keep dry for 48-72 hours. After that time discard the outer bandage. If they are tapes on the skin under the out of bandage leave them in place. They will peel off in the next 7 to 10 days. Do Not Peel them off. You may shower the day after surgery. If there are tapes present on the skin, you may shower over them. Diet There are no dietary restrictions. Eat healthy, high-fiber foods. Drink 6 to 8 glasses of liquid each day. This will assist in keeping your bowels are regular. Pain management You may take Tylenol or acetaminophen or Ibuprofen (for example, Motrin, Advil etc.) from my pain prescription medication is ordered should be taken as prescribed for moderate to severe pain. Call MD for any of the following: Severe pain not relieved by medication Fever of 101 or higher Excessive bleeding or drainage on dressing Inability to urinate Disposition: HOME - Home Medications Comprehensive Discharge Medication List: Ambulatory Orders Vitamins 1 tab PO DAILY 11/21/17
--- NOTE | 2018-02-04 17:36 | PATH ---
Surgical Pathology Report Patient Name: KIRSTEN CURTIS [facility]. Rec. #: [id number] /Age/Gender: 1985 (Age: 32) / F Account: [id number] Location: [facility] OBS/RADIATION ENGINEER Taken: 01/25/2018 Received: 01/28/2018 Reported: 02/04/2018 Physicians: Blanquita Stark M.D. Specimen(s) Received PLACENTA Clinical History , 41 weeks, post dates, positive GBS, elective induction Final Diagnosis PLACENTA, SECTION: 521 G THIRD TRIMESTER PLACENTA WITH TRIVASCULAR UMBILICAL CORD AND UNREMARKABLE PLACENTAL MEMBRANES. Electronically Signed Radha Villagomez M.D. Gross Description The specimen is received fresh labeled placenta and is a 521 gram, 20.0 x 16.0 x 2.3 cm. placenta with attached membranes and umbilical cord. The attached membranes are wadsworth, translucent with focal opacities and insert marginally. The umbilical cord measures 12 cm. in length and averages 1.2 cm. in diameter. The cord inserts eccentrically, 6.5 cm. to the nearest margin. No true knots or strictures are identified. Cut surface of the umbilical cord reveals 3 vessels. The surface is hammonds-blue with minimal fibrin deposition and appropriate caliber vessels. The maternal surface is red-brown with focal defects. Sectioning reveals red-brown, spongy parenchyma. No lesions are identified. Wine Manager sections are submitted in three cassettes as follows: 1- membrane rolls and umbilical cord; 2-3- full thickness sections of placenta. 02/01/2018 [facility]02/01/2018
== END 2018-01-29 12:20 | disposition home or self-care (01) | DRG 788 ==
LOC: JDEL 08:55 → JLDR 10:55 → J3W 16:30
PROVIDERS: ADMIT Obstetrics & Gynecology; ATTEND Obstetrics & Gynecology
PROC: 10D00Z1 Extraction of Products of Conception, Low, Open Approach (ICD-10-PCS; principal; 2018-01-25)
DX: O48.0 Post-term pregnancy (principal); O77.0 Labor and delivery complicated by meconium in amniotic fluid; O62.0 Primary inadequate contractions; O99.824 Streptococcus B carrier state complicating childbirth; Z3A.41 41 weeks gestation of pregnancy; Z37.0 Single live birth
CPT/HCPCS: 36415; 36600; 82803; 85025; 86850; 86900; 86901; 88307-TC; 90715

== ENCOUNTER 2018-12-31 20:29 | Emergency (ER) | payer OTHER ==
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
[2018-12-31 20:43] VITALS: BP 120/79; PULSE 84; TEMP 98.2; BMI 36.8
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
[2018-12-31 21:55] LABS: HYALINE CASTS 1 /lpf (0-8); PH,URINE 6.5 (5.0-8.0); URINE APPEARANCE CLEAR; URINE BACTERIA 86.2 /hpf (NEGATIVE); URINE BILIRUBIN NEGATIVE (NEGATIVE); URINE COLOR YELLOW; URINE GLUCOSE (UA) NEGATIVE (NEGATIVE); URINE KETONE NEGATIVE (NEGATIVE); URINE LEUK ESTERASE TRACE (NEGATIVE); URINE NITRITE NEGATIVE (NEGATIVE); URINE PROTEIN NEGATIVE (NEGATIVE); URINE RBC 1 /hpf (0-4); URINE UROBILINOGEN 0.2 mg/dL (0.2-1.0); URINE WBC 2 /hpf (0-5)
== END 2018-12-31 22:36 | disposition home or self-care (01) ==
LOC: JERFT 20:29
DX: O99.89 Other specified diseases and conditions complicating pregnancy, childbirth and the puerperium (principal); S39.012A Strain of muscle, fascia and tendon of lower back, initial encounter; R10.32 Left lower quadrant pain; V43.52XA Car driver injured in collision with other type car in traffic accident, initial encounter; Y92.414 Local residential or business street as the place of occurrence of the external cause; Y93.89 Activity, other specified; Y99.8 Other external cause status; Z3A.11 11 weeks gestation of pregnancy
CPT/HCPCS: 76801-TC; 81003; 99281-25

== ENCOUNTER 2019-01-29 18:42 | Emergency (ER) | payer OTHER ==
--- NOTE | 2019-01-29 18:49 | PDOC ---
Rapid Medical Evaluation Chief Complaint: Vaginal Bleeding Time Seen by Provider: 01/29/19 18:45 Medical Evaluation: Allergies Allergy/AdvReac Type Severity Reaction Status Date / Time banana Allergy Severe Rash Verified 01/25/18 11:34 latex Allergy Severe Rash Verified 01/25/18 11:36 01/29/19 18:45 Pt is a 33 y/o F , presents to the ER today for vaginal bleeding. Pt states she is 15 weeks . She states she saw blood when she wiped today. Exam: NAD, AAOx3. Abdomen soft, nontender Orders: labs, urine, US Pt to proceed to the Er for further evaluation Discharge Disposition - Diagnosis Vaginal bleeding - Referrals - Patient Instructions - Post Discharge Activity
[2019-01-29 18:51] VITALS: BP 106/78; PULSE 78; TEMP 98; BMI 37.4
[2019-01-29] MEDS ORDERED: SODIUM CHLORIDE 0.9% 500 ML INFUS.BAG IV ONE (20:14)
[2019-01-29 20:40] LABS: BASO % 0.6 % (0-2.0); EOS % 0.7 % (0-4.5); HEMATOCRIT 35.8 % (32.4-45.2); HEMOGLOBIN 11.6 GM/dL (10.7-15.3); LYMPH % 28.2 % (8-40); MCH 27.2 pg (25.7-33.7); MCHC 32.5 g/dl (32.0-36.0); MEAN CELL VOLUME 83.7 fl (80-96); MEAN PLT VOLUME 7.9 fl (7.5-11.1); MONO % 5.4 % (3.8-10.2); NEUT % 65.1 % (42.8-82.8); PLATELET COUNT 357 K/MM3 (134-434); RBC 4.28 M/mm3 (3.60-5.2); WHITE BLOOD COUNT 11.7 K/mm3 (4.0-10.0)
[2019-01-29 20:52] LABS: EPI CELLS 6.8 /HPF (0-5/HPF); HYALINE CASTS 10 /lpf (0-8); PH,URINE 7.5 (5.0-8.0); URINE APPEARANCE CLOUDY; URINE BACTERIA 339.3 /hpf (NEGATIVE); URINE BILIRUBIN NEGATIVE (NEGATIVE); URINE COLOR YELLOW; URINE GLUCOSE (UA) NEGATIVE (NEGATIVE); URINE KETONE NEGATIVE (NEGATIVE); URINE LEUK ESTERASE TRACE (NEGATIVE); URINE NITRITE NEGATIVE (NEGATIVE); URINE PROTEIN NEGATIVE (NEGATIVE); URINE RBC 3 /hpf (0-4); URINE WBC 6 /hpf (0-5)
[2019-01-29 21:06] LABS: ALBUMIN 3.2 g/dl (3.4-5.0); BILIRUBIN,TOTAL 0.3 mg/dL (0.2-1); BLOOD UREA NITROGEN 6.1 mg/dL (7-18); CREATININE 0.5 mg/dL (0.55-1.3); POTASSIUM 4.4 mmol/L (3.5-5.1); TOT PROT 6.9 g/dl (6.4-8.2)
[2019-01-29] MEDS ORDERED: NITROFURANTOIN MACROCRYSTAL 50 MG CAPSULE (FP) PO SCH (22:00)
[2019-01-29] MEDS ORDERED: NITROFURANTOIN MACROCRYSTAL 50 MG CAPSULE (FP) ONE (22:24)
[2019-01-29 22:46] LABS: YEAST NONE SEEN (NEGATIVE)
--- NOTE | 2019-01-29 22:49 | PDOC ---
Documentation entered by Derik Brown SCRIBE, acting as scribe for Dalia Aparicio MD. Dalia Aparicio MD: This documentation has been prepared by the Kevin lopez Daniel, SCRIBE, under my direction and personally reviewed by me in its entirety. I confirm that the documentation accurately reflects all work, treatment, procedures, and medical decision making performed by me. History of Present Illness - General Chief Complaint: Vaginal Bleeding Stated Complaint: 15 WKS /BLEEDING Time Seen by Provider: 01/29/19 18:45 History Source: Patient Exam Limitations: No Limitations - History of Present Illness Initial Comments: 01/29/19 20:44 The patient is a 33 year old 15 week female with a past medical history of eczema here today for evaluation of vaginal bleeding. The patient reports that at approximately 6 PM today she went to the bathroom and noticed some brown blood while wiping after urinating. She also notes that there was some brown blood in the bowl. She states that she called her OB who told her to come to the ER for evaluation. Patient notes some light spotting on her underwear earlier today and more brown blood after going to the bathroom while in the ER. She notes some dull abdominal cramping around her scar. She denies any trauma, heavy lifting, or vaginal discharge. Patient denies headache, lightheadedness. Denies fever, chills. Denies chest pain, shortness of breath. Denies nausea, vomiting, diarrhea, abdominal pain. Denies urinary symptoms. Allergies: banana, latex OBGYN: Kathleen Stark Past History - Past Medical History Allergies/Adverse Reactions: Allergies Allergy/AdvReac Type Severity Reaction Status Date / Time banana Allergy Severe Rash Verified 01/29/19 18:47 latex Allergy Severe Rash Verified 01/29/19 18:47 Home Medications: Ambulatory Orders Vitamins 1 tab PO DAILY 11/21/17 Nitrofurantoin Monohyd/M-Cryst [Macrobid -] 100 mg PO BID #14 capsule 01/29/19 Anemia: No Asthma: No Cancer: No Cardiac Disorders: No CVA: No COPD: No CHF: No Dementia: No Diabetes: No GI Disorders: No Disorders: No HTN: No Hypercholesterolemia: No Liver Disease: No Seizures: No Thyroid Disease: No - Surgical History GI Surgery: Yes (GASTRIC SLEEVE) - Reproductive History Therapeutic (s) & number: No - Immunization History Immunization Up to Date: Yes - Psycho Social/Smoking Cessation Hx Smoking History: Never smoked Have you smoked in the past 12 months: No Information on smoking cessation initiated: No Hx Alcohol Use: No Drug/Substance Use Hx: No Substance Use Type: None Hx Substance Use Treatment: No Review of Systems - Review of Systems Able to Perform ROS?: Yes Comments:: 01/29/19 20:45 GENERAL/CONSTITUTIONAL: No fever or chills. No weakness. HEAD, EYES, EARS, NOSE AND THROAT: No change in vision. No ear pain or discharge. No sore throat. CARDIOVASCULAR: No chest pain or shortness of breath. RESPIRATORY: No cough, wheezing, or hemoptysis. GASTROINTESTINAL: +abdominal cramping. No nausea, vomiting, diarrhea or constipation. GENITOURINARY: +vaginal bleeding. No dysuria, frequency, or change in urination. MUSCULOSKELETAL: No joint or muscle swelling or pain. No neck or back pain. SKIN: No rash NEUROLOGIC: No headache, vertigo, loss of consciousness, or change in strength/ sensation. ENDOCRINE: No increased thirst. No abnormal weight change. HEMATOLOGIC/LYMPHATIC: No anemia, easy bleeding, or history of blood clots. ALLERGIC/IMMUNOLOGIC: No hives or skin allergy. *Physical Exam - Vital Signs Last Vital Signs Temp Pulse Resp BP Pulse Ox 98 F 78 19 106/78 100 01/29/19 18:44 01/29/19 18:44 01/29/19 18:44 01/29/19 18:44 01/29/19 18:44 - Physical Exam Comments: 01/29/19 20:45 GENERAL: Awake, alert, and fully oriented, in no acute distress HEAD: No signs of trauma EYES: PERRLA, EOMI, sclera anicteric, conjunctiva clear ENT: Auricles normal inspection, hearing grossly normal, nares patent, oropharynx clear without exudates. Moist mucosa NECK: Normal ROM, supple, no lymphadenopathy, JVD, or masses LUNGS: Breath sounds equal, clear to auscultation bilaterally. No wheezes, and no crackles HEART: Regular rate and rhythm, normal S1 and S2, no murmurs, rubs or gallops ABDOMEN: Soft, nontender, normoactive bowel sounds. No guarding, no rebound. No masses PELVIC: +minimal blood in the vault. Os closed. EXTREMITIES: Normal range of motion, no edema. No clubbing or cyanosis. No cords, erythema, or tenderness NEUROLOGICAL: Cranial nerves II through XII grossly intact. Normal speech, normal gait SKIN: Warm, Dry, normal turgor, no rashes or lesions noted. ED Treatment Course - LABORATORY CBC & Chemistry Diagram: 01/29/19 20:30 01/29/19 20:30 - ADDITIONAL ORDERS Additional order review: 01/29/19 20:30 RBC 4.28 MCV 83.7 MCHC 32.5 RDW 16.0 H MPV 7.9 Neutrophils % 65.1 Lymphocytes % 28.2 Monocytes % 5.4 Eosinophils % 0.7 Basophils % 0.6 - Medications Given in the ED: ED Medications Discontinued Medications Generic Name Dose Route Start Last Admin Trade Name Freq PRN Reason Stop Dose Admin Sodium Chloride 1,000 ml 01/29/19 20:14 01/29/19 20:38 Normal Saline - IV 01/29/19 20:15 1,000 ml ONCE ONE Administration Medical Decision Making - Medical Decision Making 01/29/19 20:42 Hb/HCT stable and 11+ Pt has a normal Vag exam with minimal vag bleeding. 01/29/19 20:43 UA cloudy and pt will be treated if UTI 01/29/19 20:43 Sonogram pending Discharge - Discharge Information Problems reviewed: Yes Clinical Impression/Diagnosis: Vaginal bleeding, Threatened , UTI (urinary tract infection) Condition: Stable Disposition: HOME - Admission No - Additional Discharge Information Prescriptions: Nitrofurantoin Monohyd/M-Cryst [Macrobid -] 100 mg PO BID #14 capsule - Follow up/Referral - Patient Discharge Instructions Patient Printed Discharge Instructions: DI for Threatened , Urinary Tract Infection - Post Discharge Activity
== END 2019-01-29 23:11 | disposition home or self-care (01) ==
LOC: JER 18:42
PROC: 3E0337Z Introduction of Electrolytic and Water Balance Substance into Peripheral Vein, Percutaneous Approach (ICD-10-PCS; principal; 2019-01-29)
DX: O26.892 Other specified pregnancy related conditions, second trimester (principal); Z3A.15 15 weeks gestation of pregnancy; O20.0 Threatened abortion; N39.0 Urinary tract infection, site not specified; Z91.040 Latex allergy status; Z91.018 Allergy to other foods
CPT/HCPCS: 36415; 76801-TC; 80053; 81003; 84702; 85025; 86850; 86900; 86901; 99282-25

== ENCOUNTER 2019-12-01 04:08 | Day surgery (SDC) | payer OTHER ==
[2019-11-27 15:35] VITALS: BMI 35.5
--- OUTSIDE RECORDS SUMMARY | 2019-12-01 04:11 | XMS ---
:1985 Author Organization [facility] Care Team Providers Name Role Phone Nkechi Vallejo NP Unavailable Unavailable Re-disclosure Warning The records that you are about to access may contain information from federally- assisted alcohol or drug abuse programs. If such information is present, then the following federally mandated warning applies: This information has been disclosed to you from records protected by federal confidentiality rules (42 CFR part 2). The federal rules prohibit you from making any further disclosure of this information unless further disclosure is expressly permitted by the written consent of the person to whom it pertains or as otherwise permitted by 42 CFR part 2. A general authorization for the release of medical or other information is NOT sufficient for this purpose. The Federal rules restrict any use of the information to criminally investigate or prosecute any alcohol or drug abuse patient.The records that you are about to access may contain highly sensitive health information, the redisclosure of which is protected by Article 27-F of the [facility] Public Health law. If you continue you may haveaccess to information: Regarding HIV / AIDS; Provided by facilities licensed or operated by the [facility] Office of Mental Health; or Provided by the [facility] Office for People With Developmental Disabilities. If such information is present, then the following [facility] mandated warning applies: This information has been disclosed to you from confidential records which are protected by state law. State law prohibits you from making any further disclosure of this information without the specific written consent of the person to whom it pertains, or as otherwise permitted by law. Any unauthorized further disclosure in violation of state law may result in a fine or longterm sentence or both. A general authorization for the release of medical or other information is NOT sufficient authorization for further disclosure. 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 ID Date Data Source [id number] 07/14/2019 08:35:00 AM EDT [facility] Name Value Range Interpretation Description Data Sup porting Code Source(s) Document(s ) SARS [facility] CORONAVIRUS 2 RNA This lab was ordered by [facility] and reported by [facility]. Procedure
--- NOTE | 2019-12-01 07:06 | HP ---
History & Physical Update - History History: No Change - Physical Physical: No Change - Assessment Assessment: No Change - Plan Plan: No Change (No change in HP)
[2019-12-01] MEDS ORDERED: PROPOFOL 20 ML ONE ×2 (07:34)
[2019-12-01] MEDS ORDERED: ROCURONIUM BROMIDE 50 MG/5 ML SYRINGE ONE (07:35)
[2019-12-01] MEDS ORDERED: SUCCINYLCHOLINE CHLORIDE 200 MG/10 ML SYRINGE ONE (07:35)
[2019-12-01] MEDS ORDERED: MIDAZOLAM HCL 2 MG/2 ML SINGLE DOSE VIAL ONE (07:57)
[2019-12-01] MEDS ORDERED: BUPIVACAINE HCL/PF 0.5% (5 MG/ML) 30 ML VIAL IJ ONE (08:51)
[2019-12-01] MEDS ORDERED: NEOSTIGMINE METHYLSULFATE 0.5 MG/1 ML - 10 ML MDV ONE (08:55)
--- NOTE | 2019-12-01 09:45 | OP ---
Operative Note - Note: Operative Date: 12/01/19 Pre-Operative Diagnosis: Desires sterilization Operation: Laparosopic Bilateral Salpingectomy Findings: as dictated Post-Operative Diagnosis: Same as Pre-op Surgeon: Blanquita Stark Dye Tub Tender: Danielle Abreu Anesthesiologist/DRESSING ROOM PORTER: Marilee Mahmood Anesthesia: General, Local (10cc marcaine injected at end of case) Specimens Removed: b/l fallopian tubes Estimated Blood Loss (mls): 5 (ml) Drains, Volume Out (mls): 200 (ml yellow urine) Fluid Volume Replaced (mls): 1,000 (ml lr) Operative Report Dictated: Yes
--- NOTE | 2019-12-01 09:46 | SURG ---
Surgery Customer Associate Note Customer Associate: Danielle Abreu PA-C (Suzy) Date of Service: 12/01/19 Diagnosis: Desires sterilization Procedure: Operation: Laparosopic Bilateral Salpingectomy I was present for the entirety of the operative procedure. For further detail, please refer to operative report. Visit type - Case Type Case Type: Scheduled - Emergency Emergency Visit: No - New patient This patient is new to me today: Yes Date on this admission: 12/01/19 - Critical Care Critical Care patient: No
[2019-12-01] MEDS ORDERED: ONDANSETRON 4 MG/2 ML VIAL IVPUSH PRN (10:17)
[2019-12-01] MEDS ORDERED: oxyCODONE HCL 5 MG TABLET PO PRN (10:17)
[2019-12-01] MEDS ORDERED: LACTATED RINGERS SOLUTION 1,000 ML IV SCH (10:30)
[2019-12-01 10:34] VITALS: TEMP 97.8
[2019-12-01] MEDS ORDERED: ONDANSETRON 4 MG/2 ML VIAL ONE (12:05)
--- NOTE | 2019-12-01 16:14 | OP ---
DATE OF OPERATION: 12/01/2019 PREOPERATIVE DIAGNOSIS: Voluntary sterilization. OPERATION: Laparoscopic bilateral salpingectomy. POSTOPERATIVE DIAGNOSIS: Voluntary sterilization. SURGEON: Blanquita Stark MD. REIMBURSEMENT COUNSELOR: SYL Campo. ANESTHESIA: General. ESTIMATED BLOOD LOSS: 5 mL. PROCEDURE: Patient was taken to the operating room, placed in dorsal lithotomy position. Prepped and draped in usual sterile fashion. Timeout was performed in accordance with hospital regulation. A 5-mm umbilical incision was made. Veress needle was inserted through the cavity, approximately 3-4 L of CO2 was insufflated in the cavity. Veress needle was then removed, and a 5-mm trocar was then introduced with laparoscopic camera. Visualization revealed normal tubes and ovaries. Uterus is noted to have some small fibroids. Two trocars were placed on the left and right side in the lower abdomen. After incisions were made, trocars were inserted under direct visualization. The LigaSure was then attached, and right tube was done, and coagulation and cutting of the right tube was done and removed. Salpingectomy was done on the right. Same procedure was repeated on the left side. Ovaries were noted to be normal, and tubes were removed and submitted to pathology. Hemostasis was achieved. All CO2 was removed from the abdomen. Incisions were then closed using 3-0 Vicryl suture in subcuticular fashion. Wound was washed and dressed. Patient tolerated procedure well and was taken to recovery in stable condition. BLANQUITA STARK M.D. CLEMENT/[id number]
[2019-12-01 16:47] VITALS: BP 119/61; PULSE 88
--- NOTE | 2019-12-02 18:11 | PATH ---
Surgical Pathology Report Patient Name: KIRSTEN CURTIS Med. Rec. #: [id number] /Age/Gender: 1985 (Age: 34) / F Account: [id number] Location: [facility] SURGICAL Taken: 12/01/2019 Received: 12/01/2019 Reported: 12/02/2019 Physicians: Blanquita Stark M.D. Specimen(s) Received A: RIGHT FALLOPIAN TUBE B: LEFT FALLOPIAN TUBE Clinical History Voluntary sterilization Final Diagnosis A. FALLOPIAN TUBE, RIGHT, LAPAROSCOPIC SALPINGECTOMY: UNREMARKABLE FALLOPIAN TUBE (INCLUDING FIMBRIATED END AND FULL LUMINAL PORTION). B. FALLOPIAN TUBE, LEFT, LAPAROSCOPIC SALPINGECTOMY: UNREMARKABLE FALLOPIAN TUBE (INCLUDING FIMBRIATED END AND FULL LUMINAL PORTION). Electronically Signed Radha Villagomez M.D. Gross Description A. Received in formalin labeled "right fallopian tube," is a 5.5 cm in length fimbriated fallopian tube. The outer surface is wadsworth-pink and smooth. Sectioning reveals an unremarkable lumen. Physiologist sections are submitted in 2 cassettes as follows: 1-fimbria; 6-rhpcl-dyuuzxda of fallopian tube. B. Received in formalin labeled "left fallopian tube," is a 6.5 cm in length fimbriated fallopian tube. The outer surface is wadsworth-pink and smooth. Sectioning reveals an unremarkable lumen. Physiologist sections are submitted in 2 cassettes as follows: 1-fimbria; 2-cross sections of fallopian tube. /12/01/2019 saudi/12/01/2019
== END 2019-12-01 14:00 | disposition home or self-care (01) ==
LOC: JASU-SURG 04:08
PROVIDERS: ATTEND Obstetrics & Gynecology
PROC: 0UB74ZZ Excision of Bilateral Fallopian Tubes, Percutaneous Endoscopic Approach (ICD-10-PCS; principal; 2019-12-01 07:30)
DX: Z30.2 Encounter for sterilization (principal)
CPT/HCPCS: 84703; 88302-TC; 94760

== ENCOUNTER 2021-12-01 09:17 | Emergency (ER) | payer BC, OTHER ==
[2021-12-01 09:25] VITALS: BP 142/85; PULSE 110; RESP 20; TEMP 97.5; BMI 38.2
== END 2021-12-01 11:51 | disposition home or self-care (01) ==
LOC: JERFT 09:17
DX: S00.451A Superficial foreign body of right ear, initial encounter (principal); W45.8XXA Other foreign body or object entering through skin, initial encounter
CPT/HCPCS: 99282-25